=== PATIENT | male | born 1985 | race Asian ===

== ENCOUNTER → 2020-12-21 01:50 | Outpatient (CLI) | payer OTHER, SELFPAY ==
[2020-12-22 19:27] LABS: SARS-CoV-2 RNA PCR Negative
== END ==
PROVIDERS: PCP Emergency Medicine; Visit Provider Internal Medicine Gastroenterology
DX: Z01.812 Encounter for preprocedural laboratory examination (principal); Z20.822 Contact with and (suspected) exposure to COVID-19
CPT/HCPCS: C9803; U0003; U0005

== ENCOUNTER 2020-12-24 01:23 | Day surgery (SDC) | payer OTHER, SELFPAY ==
[2020-12-20 14:09] VITALS: BMI 20.2
[2020-12-24 10:26] VITALS: BP 119/75; PULSE 71; RESP 16; TEMP 36.1; O2SAT 100
[2020-12-24] MEDS: LACTATED RINGERS 1,000 ML 150 ML IV CONT (10:39)
--- NOTE | 2020-12-24 11:09 | P.PNAN_ITS ---
Anes - Initial Pre Proc Eval Procedure: Operation Date: 12/24/20 11:30 Proposed Procedures p Esophagogastroduodenoscopy & Colonoscopy - Stephen Woodson MD Date/Time: 12/24/20 11:09 Surgeon: Stephen Woodson MD Pre Op Diagnosis: diarrhea and indigestion Patient Data Age: 35 Gender: M Height: 5 ft 9 in Weight: 57 kg Last Vital Signs Temp 96.9 F L 12/24/20 10:26 Pulse 71 12/24/20 10:26 Resp 16 12/24/20 10:26 BP 119/75 12/24/20 10:26 Pulse Ox 100 12/24/20 10:26 Allergies Allergy/AdvReac Type Severity Reaction Status Date / Time No Known Allergies Allergy Verified 12/24/20 10:25 Home Medications Medication Instructions Recorded Confirmed Type No Home Medications 12/20/20 12/24/20 History Patient hx anesthesia problems: none Family hx anesthesia problems: none [facility] Past Medical History Medical History (Updated 12/24/20 @ 11:09 by Pete Nelson MD) Healthy adult Family History Family History (System 07/17/19 @ 15:30 by Shellie Kim) Mother Patient's mother is in good health Father Patient's father is in good health Sibling Patient's brother is in good health Social History Social History (System 07/17/19 @ 15:30 by Shellie Kim) Smoking status: Never smoker Alcohol intake: never Substance use: never Substance use type: does not use Living arrangements: with family Spiritual care concerns: No Anes - Eval Final PreProcedure Day of Procedure 12/24/20 11:09 Patient weight: normal Heart: regular rate and rhythm Lungs: clear to auscultation Airway: Mallampati scale class II Neurological: alert and oriented Last oral intake: >/= 8 hours ASA classification: I Emergent: no Anesthetic plan: proceed Anesthesia type and monitoring: general GIVS and standard monitoring Informed Consent: The patient's anesthetic plan and its attendant risks and benefits were discussed with the patient/family/POA. Questions were solicited and answers provided to the satisfaction of the patient/family/POA.
--- NOTE | 2020-12-24 11:10 | P.HP_ITS ---
History of Present Illness History of Present Illness Consent: Risks, benefits, and alternatives have been discussed and questions answered. Patient agrees to proceed with procedure. Chief complaint: diarrhea and indigestion Narrative: Jesi Viveros is a 35 year old male referred for investigation of persistent epigastric distress. He has a history of having had H pylori a couple of years ago. That was diagnosed on a breath test. He also has had diarrhea. At times he will have urgent bowel movements shortly after eating or or when he has stomach discomfort. He has lost some weight Review of Systems Review of Systems: All systems reviewed & are unremarkable except as noted in HPI and below PMFSH Past Medical History Medical History Healthy adult Family History Family History Mother Patient's mother is in good health Father Patient's father is in good health Sibling Patient's brother is in good health Social History Social History Smoking status: Never smoker Alcohol intake: never Substance use: never Substance use type: does not use Living arrangements: with family Spiritual care concerns: No Meds Home Medications and Allergies Home Medications Medication Instructions Recorded Confirmed Type No Home Medications 12/20/20 12/24/20 History Allergies Allergy/AdvReac Type Severity Reaction Status Date / Time No Known Allergies Allergy Verified 12/24/20 10:25 Vital Signs Vital Signs - 24 hr 12/24/20 10:26 Temperature 36.1 C L Pulse Rate 71 Respiratory Rate 16 Blood Pressure 119/75 Pulse Oximetry 100 Exam Resp: Auscultation: clear to auscultation bilaterally Cardio: Rate: regular rate Rhythm: regular rhythm GI: GI Palp: Yes Soft to palpation and No Tenderness to palpation present (GI) Assessment and Plan Assessment and plan (1) Epigastric pain: Code(s): R10.13 - Epigastric pain Status: Acute Assessment and Plan: EGD with possible biopsy or dilatation or cautery. (2) Chronic diarrhea: Code(s): K52.9 - Noninfective gastroenteritis and colitis, unspecified Status: Acute Assessment and Plan: Colonoscopy with possible biopsy or polypectomy or cautery or injection of s ubstances.
--- NOTE | 2020-12-24 11:10 | SUR.PREOP ---
Pt verbally consented to allow 2 nursing students to observe procedure.
[2020-12-24 11:51] VITALS: BP 92/55; PULSE 60; RESP 18; O2SAT 96
[2020-12-24 12:01] VITALS: BP 89/58; PULSE 53; RESP 13; O2SAT 97
[2020-12-24 12:11] VITALS: BP 103/71; PULSE 58; RESP 16; O2SAT 97
--- NOTE | 2020-12-24 12:51 | SUR.PHASEII ---
Pt waiting on to arrive for ride as well as to speak with doctor.
== END 2020-12-24 12:52 | disposition home or self-care (01) ==
PROVIDERS: PCP Emergency Medicine; Visit Provider Internal Medicine Gastroenterology
PROC: 0DJ08ZZ Inspection of Upper Intestinal Tract, Via Natural or Artificial Opening Endoscopic (ICD-10-PCS; CPT 43235; principal; 2020-12-24 11:30)
DX: K59.1 Functional diarrhea (principal); R10.13 Epigastric pain; K29.60 Other gastritis without bleeding
CPT/HCPCS: 45380; 43239; 87081; 88305; J2001; J2704; J7120

== ENCOUNTER 2021-12-27 18:20 | Emergency (ER) | payer OTHER, SELFPAY ==
[2021-12-27 18:25] VITALS: BP 114/70; PULSE 69; RESP 12; TEMP 36.1; O2SAT 99
--- NOTE | 2021-12-27 18:40 | ED.EYEPROB ---
HPI - Eye Problem General Chief complaint: Eye Problems Stated complaint: right eye blood vessel Time Seen by Provider: 12/27/21 18:40 Source: patient Mode of arrival: ambulatory Limitations: no limitations History of Present Illness HPI Narrative: 36-year-old male presented for complaint of blood spot in the right inner eye, first noticed today. He denies any vision changes, eye pain, headaches, or drainage. He denies rubbing his eye or straining. He has applied a cold compress to the eye. chief complaint: eye pain Related Data Home Medications Medication Instructions Recorded Confirmed No Home Medications 12/20/20 12/24/20 Allergies Allergy/AdvReac Type Severity Reaction Status Date / Time No Known Allergies Allergy Verified 12/24/20 10:25 Review of Systems Review of Systems: CONSTITUTIONAL: Denies body aches, fever, chills EYES:Endorses red blood spot to right inner eye ENT: Denies rhinorrhea, congestion CARDIOVASCULAR: Denies chest pain, palpitations RESPIRATORY: Denies cough or dyspnea. SKIN: Denies rash, itching, or wounds. MUSCULOSKELETAL: Denies back pain, joint pain, or myalgia. NEUROLOGIC: Denies headache, numbness, tingling, or weakness. All systems reviewed & are unremarkable except as noted in HPI and below PMFSH Past Medical History Medical History Healthy adult Family History Family History Mother Patient's mother is in good health Father Patient's father is in good health Sibling Patient's brother is in good health Social History Social History Smoking status: Never smoker Alcohol intake: never Substance use: never Substance use type: does not use Spiritual care concerns: No Comments At time of signature, I have reviewed and agree with nursing past medical, surgical, social and family history unless otherwise noted. Please see nursing chart for further information. There is no relevant family history pertinent to the presenting complaint Exam Narrative: GENERAL: Well-appearing HEAD: Normocephalic, atraumatic. EYES: Right medial eye subconjunctival hemorrhage approx 3mm diameter, no eye lid swelling,redness, or drainage. EOMI. ENT: Mucous membranes pink and moist. No rhinorrhea. NECK: Normal AROM. Supple. No lymphadenopathy. CHEST: No respiratory distress. Clear to auscultation. HEART: Regular rate and rhythm. No murmur appreciated. Normal peripheral pulses. SKIN: Warm, dry, no rash. Normal skin turgor. NEURO: No focal deficits. Alert and oriented x3. Steady gait Course Course Emergency Course: Patient is aware of diagnosis, understands and agrees to treatment plan. Anticipatory guidance given. Patient agrees to follow-up as directed and is aware of reasons to seek care at the emergency department. Portions of this record may have been created with voice recognition software Level of Care: Express Care Visit Vital Signs Vital signs: Vital Signs Temperature 97.0 F L 12/27/21 18:25 Pulse Rate 69 12/27/21 18:25 Respiratory Rate 12 12/27/21 18:25 Blood Pressure 114/70 12/27/21 18:25 Pulse Oximetry 99 12/27/21 18:25 Oxygen Delivery Room Air 12/27/21 18:25 Temperature 97.0 F L 12/27/21 18:25 Pulse Rate 69 12/27/21 18:25 Respiratory Rate 12 12/27/21 18:25 Blood Pressure 114/70 12/27/21 18:25 Pulse Oximetry 99 12/27/21 18:25 Oxygen Delivery Room Air 12/27/21 18:25 MDM - Eye Problem MDM Narrative Medical decision making narrative: PE c/w subconjunctival hemorrhage, nontraumatic. Pt is advised on supportive treatment along with s/s to go to the ER. Differential Diagnosis Differential diagnosis: Likely corneal abrasion, conjunctivitis, acute iritis, subconjunctival hemorrhage and other Discharge Plan Discharge Clinical Impression:
== END 2021-12-27 18:52 | disposition home or self-care (01) ==
PROVIDERS: Emergency Provider Nurse Practitioner Family
DX: H11.31 Conjunctival hemorrhage, right eye (principal)
CPT/HCPCS: 99211; G0463